=== PATIENT | male | born 2000 | race Caucasian/White ===

== ENCOUNTER 2025-05-06 18:10 | Emergency (ER) | payer BC, SELFPAY ==
[2025-05-06 18:21] VITALS: BP 154/80; PULSE 103; TEMP 36.7; O2SAT 100; BMI 24.4
--- NOTE | 2025-05-06 19:15 | XR_ITS ---
[place] [id number] Patient Name: ALDO BRONSON MRN: [id number] date: 2000 Sex: M Assigned Patient Location: ER Current Patient Location: ER Accession/Order Number: [id number] Exam Date: 05/06/2025 19:36 Report Date: 05/06/2025 19:39 At the request of: NETTE DASH MD Procedure: XR chest 2V Plain film chest Single view HISTORY: Shortness of breath COMPARISON: None FINDINGS: SUPPORT DEVICES: None POSTSURGICAL CHANGES: None HEART: Within normal limits PULMONARY ALEXX: Within normal limits MEDIASTINUM: Unremarkable LUNGS AND PLEURA: No acute lung process, pleural effusion or pneumothorax identified. BONY STRUCTURES: Intact ADDITIONAL FINDINGS None XR/XR chest 2V IMPRESSION: No acute process. Impression dictated by: Murphy Pool M.D. 05/06/2025 7:39 PM Dictation Location: [place] [address] Electronically authenticated by: [id number] Y Date: 05/06/2025 19:39
--- NOTE | 2025-05-06 19:17 | ECG_ITS ---
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 Measurements Intervals [place] Rate: 104 P: 67 [place]: 174 QRS: 73 QRSD: 96 T: 58 QT: 334 QTc: 395 Interpretive Statements 1120 Sinus tachycardia 9140 abnormal rhythm ECG Compared to ECG 11/14/2022 18:13:13 Sinus rhythm no longer present Electronically Signed On 05-07-2025 6:48:38 EDT by CHAVO MORTON M.D.
--- NOTE | 2025-05-06 19:17 | ED.SOB1 ---
HPI - SOB/Dyspnea General Chief Complaint: Shortness of Breath/Dyspnea Stated Complaint: Upper Respiratory Infection CHEST PAIN Time Seen by Provider: 05/06/25 19:06 Source: patient Mode of arrival: walk-in Limitations: no limitations History of Present Illness HPI Narrative: This 24-year-old male who is otherwise healthy and a non-smoker presents for evaluation of generalized illness. He states he woke up this morning and felt like he had a vice around his chest. He has felt weak all day. He was at a local event with large numbers of people last weekend. He states he was bounced around a little bit on the edge of a [facility] pit but did not get injured. He denies any abdominal pain. He denies any nausea vomiting or diarrhea. Related Data Home Medications ?Medication ?Instructions ?Recorded ?Confirmed No Known Home Medications 05/06/25 05/06/25 Allergies Allergy/AdvReac Type Severity Reaction Status Date / Time diphenhydramine (From Allergy Mild Hives Verified 05/06/25 18:25 Benadryl) Review of Systems ROS Status of ROS 10 or more systems reviewed and unremarkable except as noted in history and below PFSH PFSH Social History Little interest or pleasure in doing things: not at all Feeling down, depressed, or hopeless: not at all Exam Narrative Exam Narrative: Vital signs and Nursing Notes reviewed: Patient is afebrile, he is mildly tachycardic with a pulse of 103, blood pressure is elevated 154/80, he is not hypoxic with pulse ox of 100% on room air General: Awake, alert, oriented, no acute distress, lying comfortably on the stretcher HEENT: Normocephalic atraumatic, mucous membranes are moist and pink, eyes are clear, normal conjunctiva, vision is grossly intact, posterior pharynx is normal in appearance. Neck: Supple, no meningeal signs, no anterior or posterior cervical lymphadenopathy Chest: Lungs are clear to auscultation with good air entry, there is no wheezing rhonchi or rales appreciated no accessory muscle use, patient is speaking in complete sentences-no chest wall tenderness to palpation CVS: Regular rate and rhythm S1-S2, tachycardic triage with a pulse of 103, pulse is 90 on my exam with no murmurs rubs or gallops, pulses are brisk and equal bilaterally ABD: Soft, nondistended, nontender, no rebound guarding or rigidity, bowel sounds are normal, no pulsatile masses appreciated Extremities: Moving all extremities, no lower extremity tenderness or swelling noted, negative Homans' sign, pulses are brisk and equal bilaterally Skin: Normal in appearance without rash,pallor, petechiae or purpura Neuro: No focal deficits Constitutional Vital Signs, click to edit/add: Last Vital Signs Temp 98.1 F 05/06/25 18:21 Pulse 103 H 05/06/25 18:21 Resp 18 05/06/25 18:21 BP 154/80 H 05/06/25 18:21 Pulse Ox 100 05/06/25 18:21 O2 Del Method Room Air 05/06/25 18:21 Course Vital Signs Vital signs: Vital Signs Temperature 98.1 F 05/06/25 18:21 Pulse Rate 103 H 05/06/25 18:21 Respiratory Rate 18 05/06/25 18:21 Blood Pressure 154/80 H 05/06/25 18:21 Pulse Oximetry 100 05/06/25 18:21 Oxygen Delivery Method Room Air 05/06/25 18:21 Temperature 98.1 F 05/06/25 18:21 Pulse Rate 103 H 05/06/25 18:21 Respiratory Rate 18 05/06/25 18:21 Blood Pressure 154/80 H 05/06/25 18:21 Pulse Oximetry 100 05/06/25 18:21 Oxygen Delivery Method Room Air 05/06/25 18:21 MDM - SOB/Dyspnea MDM Narrative Medical decision making narrative: This 24-year-old male who is otherwise healthy and a non-smoker presents for evaluation of generalized illness. The patient states he was at [facility] in [place] for 3 days over the weekend and woke up this morning feeling sick wtih the sensation that he has a vise around his chest. He was mildly tachycardic upon arrival. His skin is warm to the touch but he did not have a documented fever. His physical exam is benign. His lungs are clear. He was medicated with Tylenol and ibuprofen. EKG is a sinus tachycardia at 104 bpm. He was tested for strep, COVID-19 and influenza. He is negative for strep and influenza but positive for COVID-19. He has not had COVID-19 vaccinations. He is not on any medications that are contraindicated for Paxlovid and will be given a prescription for Paxlovid and ibuprofen. He will be given a note for work to quarantine for the next 5 days. His chest x-ray is normal. Lab Data Attestation: I reviewed the patient's lab results. Labs: Lab Results 05/06/25 Range/Units 19:20 Influenza Type A Ag Negative Influenza Type B Ag Negative SARS-CoV-2 Ag (CV2AG) Positive A (NEGATIVE) Streptococcus Screen Negative Imaging Data x: Radiologist's impression: ITS Impressions Chest X-Ray 05/06/25 19:15 IMPRESSION: No acute process. Impression dictated by: Murphy Pool M.D. 05/06/2025 7:39 PM Dictation Location: [employer] Electronically authenticated by: [id number] Y Date: 05/06/2025 19:39 ECG Data Attestation: I personally reviewed and interpreted this ECG as follows: (EKG interpretation sinus tachycardia at 104 bpm, normal axis, normal intervals, no acute ST segment elevation or T wave inversion) Discharge Plan Discharge Chief Complaint: Shortness of Breath/Dyspnea Clinical Impression: COVID-19 Patient Disposition: Home, Self-Care Time of Disposition Decision: 20:09 Condition: Good Prescriptions / Home Meds: No Action No Known Home Medications Print Language: Iraqi Instructions: Droplet Precautions (ED), COVID-19 (Coronavirus Disease 2019) (ED), COVID-19: Slow the Coronavirus Spread (ED), How to Recover from COVID-19 at Home (ED) Referrals: Physician,Non-Staff, MD [Primary Care Provider] - 1 week
[2025-05-06 19:27] VITALS: PULSE 104
[2025-05-06] MEDS: IBUPROFEN 600 MG TABLET PO (19:40)
[2025-05-06] MEDS: ACETAMINOPHEN 325 MG TABLET 650 MG PO (19:41)
[2025-05-06 19:51] LABS: SARS-CoV-2 Ag POSITIVE (NEGATIVE)
[2025-05-06 20:16] VITALS: PULSE 95; O2SAT 95
== END 2025-05-06 20:20 | disposition home or self-care (01) ==
PROVIDERS: Emergency Provider Emergency Medicine
DX: U07.1 COVID-19 (principal)
CPT/HCPCS: 71046; 87070; 87804; 87811; 87880; 93005; 99285